=== PATIENT | female | born 1980 | race Caucasian/White ===

== ENCOUNTER 2021-08-05 19:31 | Emergency (ER) | payer MEDICAID ==
[~2021-08-05] VITALS: Ht 170.2 cm; Wt 80.3 kg
[2021-08-05 19:53] VITALS: BP 130/84
--- NOTE | 2021-08-05 19:59 | NUR ---
pt taken to lobby.
--- NOTE | 2021-08-05 21:22 | NUR ---
pt taken to bed 03.
[2021-08-05 21:33] LABS: APPEARANCE,URINE CLEAR (CLEAR); BILIRUBIN,URINE NEGATIVE (NEGATIVE); BLOOD, URINE NEGATIVE (NEGATIVE); LEUKOCYTE ESTERASE ,URINE TRACE (NEGATIVE); NITRITE, URINE NEGATIVE (NEGATIVE); PH,URINE 6.5 (5.0-9.0); UGLUCOSE NEGATIVE (NEGATIVE)
[2021-08-05 21:35] LABS: COLOR,URINE STRAW (YELLOW)
[2021-08-05] MEDS ORDERED: KETOROLAC 30 MG/ML VIAL IM ONE (21:40)
[2021-08-05 21:44] LABS: RBC,URINE NONE SEEN /HPF (0-5); WBC,URINE 0-5 /HPF (0-5)
--- NOTE | 2021-08-05 23:15 | NUR ---
PT BIB SELF WITH C/O OF ABDOMINAL AND BACK PAIN. PT STATES THAT THIS IS A CHRONCI CONDTION BUT HASD GOTTEN WORSE THIS WEEK. PT DENIES N/V/F/. PT HAS TAKEN AN ADVIL FOR PAIN. PT ADMITS HAVING A UTI 6 MONTHS AGO AND WAS MEDS. PMH:NONE ALLERGIES.NKA
[2021-08-06] MEDS ORDERED: CEPH-588 PO (01:19)
[2021-08-06 01:28] VITALS: BP 113/57
== END 2021-08-06 01:28 | disposition home or self-care (01) ==
LOC: MED 19:31
DX: R10.2 Pelvic and perineal pain (principal); Z79.899 Other long term (current) drug therapy
CPT/HCPCS: 76856; 81001; 81025; 93976; 96374; 99284; J1885; 99283

== ENCOUNTER 2021-09-17 12:29 | Emergency (ER) | payer MEDICAID ==
[~2021-09-17 12:29] MED LIST: CEPH-588 PO
--- NOTE | 2021-09-17 12:43 | NUR ---
ATTEMPTED TO TRIAGE PT, NO ANSWER IN LOBBY/OUTSIDE
--- NOTE | 2021-09-17 12:50 | NUR ---
CALLED X 2. NO SHOW.
--- NOTE | 2021-09-17 13:45 | NUR ---
CALLED [phone]. NO ANSWERING.
--- NOTE | 2021-09-17 13:45 | NUR ---
PATIENT LEFT WITHOUT BEING SEEN BY DR. MARX. NO FURTHER CARE PROVIDED FOR PATIENT.
== END 2021-09-17 13:45 | disposition left against medical advice (07) ==
LOC: MED 12:29
DX: Z53.21 Procedure and treatment not carried out due to patient leaving prior to being seen by health care provider (principal)